=== PATIENT | male | born 1975 | race African-American/Black ===

== ENCOUNTER 2017-01-12 23:45 | Emergency (ER) | payer OTHER ==
[~2017-01-12 23:45] MED LIST: *DENIES; MOTRIN IB200 MG; MOTRIN IB200 MG PO; MULTIVIT/MIN PO
== END 2017-01-13 02:17 | disposition home or self-care (01) ==
LOC: ER 23:45
DX: M77.11 Lateral epicondylitis, right elbow (principal); F17.200 Nicotine dependence, unspecified, uncomplicated; Z79.899 Other long term (current) drug therapy
CPT/HCPCS: 99283